=== PATIENT | male | born 2000 | race Caucasian/White ===

== ENCOUNTER 2022-11-13 17:16 | Emergency (ER) | payer SELFPAY ==
[2022-11-13] MEDS ORDERED: predniSONE 20 MG TAB ONE (18:34)
[2022-11-13] MEDS ORDERED: Ipratropium/Albuterol 3 ML NEB ONE (18:34)
== END 2022-11-13 19:14 | disposition home or self-care (01) ==
LOC: BURERS 17:16
DX: T78.49XA Other allergy, initial encounter (principal); R06.2 Wheezing
CPT/HCPCS: 71045; J7512; J7620